=== PATIENT | female | born 1955 | race Caucasian/White ===

== ENCOUNTER 2016-11-13 08:57 | Day surgery (SDC) | payer BC ==
[~2016-11-13 08:57] MED LIST: Lactated Ringers 1,000 ML IV SCH; Sodium Chloride 0.9% 10 ML Syringe FLUSH PRN
--- NOTE | 2016-11-13 09:41 | PCM.HPR ---
H & P Addendum review - H & P Addendum Review Date of Original H & P: 10/27/16 Date Reviewed: 11/13/16 Time Reviewed: 09:40 Patient was examined: No Changes Please note any Changes: ok to proceed with colonoscopy
[2016-11-13] MEDS ORDERED: fentaNYL 100 MCG/2 ML SDV ONE ×2 (09:50→09:55)
[2016-11-13] MEDS ORDERED: Midazolam 1 MG/ML 2 ML SDV ONE ×2 (09:51→09:55)
[2016-11-13] MEDS ORDERED: Propofol 200 MG/20 ML SDV ONE (09:51)
--- NOTE | 2016-11-13 10:15 | PCM.OPNOTE ---
- General Post-Op/Procedure Note Date of Surgery/Procedure: 11/13/16 Operative Procedure(s): Colonoscopy Findings: Normal Pre Op Diagnosis: FH Colon Ca Post-Op Diagnosis: Same Anesthesia Technique: MAC Primary Surgeon: Mal Arellano Anesthesia Provider: Margarita Powers Complications: None Condition: Good
[2016-11-13 10:54] VITALS: BP 97/71
--- NOTE | 2016-11-13 12:01 | OR ---
Date of Procedure: 11/13/2016 PREOPERATIVE DIAGNOSIS: Family history of colon cancer. POSTOPERATIVE DIAGNOSIS: Normal colonoscopy. PROCEDURE: Colonoscopy. ANESTHESIA: IV sedation. PROCEDURE: The patient was brought to the procedure room, where she was placed on her left side and IV sedation administered. Digital rectal exam was performed which was normal. Colonoscope was inserted and advanced to the level of the cecum without difficulty. Cecal position was confirmed by identifying the appendiceal lumen and ileocecal valve. Prep was good and surfaces were well visualized. Upon withdrawing the scope, the ascending, transverse, and descending colon were normal in appearance. Sigmoid colon and rectum were normal. Retroflexion was normal. Air was removed and the scope withdrawn. The patient tolerated the procedure well. Returned to recovery in stable condition. Recommend routine colon screening again in five years. GUS ALAS MD /[id number]
== END 2016-11-13 12:20 | disposition home or self-care (01) ==
LOC: LL.SDS 08:57
PROVIDERS: ATTEND Surgery
DX: Z12.11 Encounter for screening for malignant neoplasm of colon (principal); I10 Essential (primary) hypertension; E78.5 Hyperlipidemia, unspecified; E21.3 Hyperparathyroidism, unspecified; Z98.890 Other specified postprocedural states; Z79.899 Other long term (current) drug therapy; Z88.8 Allergy status to other drugs, medicaments and biological substances
CPT/HCPCS: 45378; J2250; J3010; J7120

== ENCOUNTER 2017-06-25 14:49 | Emergency (ER) | payer BC, OTHER ==
[2017-06-25] MEDS ORDERED: Bacitracin/Neomycin/Polymyxin B Oint 0.9 GM U/D Packet TOP ONE (14:54)
[2017-06-25] MEDS ORDERED: Diphtheria,Pertussis(Acell),Tetanus Vaccine 0.5 ML SDV IM ONE (14:54)
[2017-06-25 15:03] VITALS: BP 146/87
--- NOTE | 2017-06-25 15:12 | EDM.PDOC ---
ED HPI GENERAL MEDICAL PROBLEM - General Chief Complaint: ENT Problem Stated Complaint: hit in lip at work Time Seen by Provider: 06/25/17 14:50 Source of Information: Reports: Patient, Old Records ([facility] EMR. No paper hospital chart available.) History Limitations: Reports: No Limitations - History of Present Illness INITIAL COMMENTS - FREE TEXT/NARRATIVE: The patient was brought to the emergency room via transport vehicle from [facility] for evaluation of a laceration of her lower lip, which occurred at about 14:15 hours, after she was hit by a window link. She does not know when she last had her tetanus booster. No history of headaches, visual changes, nausea, change in mental status, loss of consciousness, dental pain, neurological deficits or other complaints or injuries. No recent history of abdominal pain, heartburn, nausea, diarrhea, melena, gross hematochezia, or any food intolerance, including fatty foods, etc.. The patient also denies any recent fever, cough, wheezing, dyspnea, etc.. Onset: Today, Sudden Onset Date: 06/25/17 Onset Time: 14:15 Duration: Constant Location: Reports: Face (Lower lip as above). Denies: Head, Neck, Chest, Abdomen, Upper Extremity, Left, Upper Extremity, Right, Radiates to Quality: Reports: Ache, Same as Previous Episode Severity: Mild Improves with: Reports: None Worsens with: Reports: None Context: Reports: Trauma (As above) Associated Symptoms: Denies: Confusion, Chest Pain, Cough, Diaphoresis, Fever/ Chills, Headaches, Malaise, Nausea/Vomiting, Seizure, Shortness of Breath, Syncope, Weakness Treatments [employer]: Reports: Cold Therapy (Ice packs applied at work) Lower Lip Pain Score (Numeric/FACES): 1 - Related Data Allergies Allergy/AdvReac Type Severity Reaction Status Date / Time aspirin Allergy Ringing in Verified 06/25/17 14:50 the Ears succinylcholine Allergy Other Verified 06/25/17 14:50 Home Meds: Home Meds Calcium Carbonate/Vitamin D3 [Caltrate 600 Plus D3 Tablet] 1 tab PO DAILY [History] Lisinopril 10 mg PO DAILY 11/13/16 [History] Naproxen Sodium [Aleve] 2 tab PO Q12H PRN 06/25/17 [History] Past Medical History HEENT History: Reports: Hard of Hearing, Other (See Below). 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 Denies: Asthma Other Respiratory History: Recurrent bronchitis and pneumonia as a child; stable benign 4 mm right lower lobe pulmonary nodule by CT scan on 07/23/15 Gastrointestinal History: Reports: None Genitourinary History: Reports: Hydronephrosis, Renal Calculus, Other (See Below ) Other Genitourinary History: Recurrent bilateral urolithiasis with spontaneous passage with right sided nephrolithiasis 10/04/14 with left-sided urolithiasis on 08/12/14; benign renal cysts Musculoskeletal History: Reports: Arthritis, Back Pain, Chronic, Osteoarthritis , Other (See Below) Other Musculoskeletal History: Lumbarization of S1 by MRI Neurological History: Reports: None Psychiatric History: Reports: None Endocrine/Metabolic History: Reports: Hyperparathyroidism, Other (See Below). Denies: Diabetes, Type I, Diabetes, Type II, Hypothyroidism, IDDM Other Endocrine/Metabolic History: hypercalcemia secondary to hyperparathyroidism with surgery as below with additional history of recurrent urolithiasis as above Hematologic History: Reports: None Oncologic (Cancer) History: Reports: None Dermatologic History: Reports: None - Past Surgical History GI Surgical History: Reports: Colonoscopy, Other (See Below) Other GI Surgeries/Procedures: Colonoscopy on 11/13/16 Endocrine Surgical History: Reports: Parathyroidectomy, Other (See Below) Other Endocrine Surgeries/Procedures: Excision of one parathyroid gland in January 2016 secondary to hyperparathyroidism Musculoskeletal Surgical History: Reports: Other (See Below) - Past Imaging History Past Imaging History: Reports: CAT Scan (CT of the abdomen and pelvis with IV contrast on 10/04/14; CT of the chest on 07/23/15), Mammogram (Last mammogram on 10/27/16), MRI (MRI of the lumbar spine on 11/30/14 and 12/20/13) Social & Family History - Family History Oncologic: Reports: Colon, Metastatic, Other (See Below) Other Oncologic Family History: Mother with fatal metastatic colon cancer at age 89 - Tobacco Use Smoking Status *Q: Former Smoker Tobacco Use Within Last Twelve Months: Cigarettes Years of Tobacco use: 39 Packs/Tins Daily: 0.1 (Stop smoking at age 56) Used Tobacco, but Quit: Yes Month Tobacco Last Used: Intermittent tobacco use since age 17 as a teenager, then again in her 40s Smoking Cessation Information Provided To Patient: No Second Hand Smoke Exposure: No Second Hand Smoke Education Provided: No - Caffeine Use Caffeine Use: Reports: Soda - Recreational Drug Use Recreational Drug Use: No - Living Situation & Occupation Occupation: Employed ([employer], assembly) ED ROS GENERAL - Review of Systems Review Of Systems: See Below ED EXAM, SKIN/RASH Exam: See Below Exam Limited By: No Limitations General Appearance: Alert, WD/WN, No Apparent Distress Eye Exam: Bilateral Eye: EOMI, Normal Inspection (No nystagmus), PERRL Ears: Normal External Exam, Normal Canal, Normal TMs, Hearing Loss (Severe chronic bilateral hearing loss stable by history) Nose: Normal Inspection, Normal Mucosa, No Blood Throat/Mouth: Normal Teeth, Normal Gums, Normal Oropharynx, Normal Voice, No Airway Compromise, Other (1.5 cm in length laceration over the mid lower lip affecting the vermilion border). No: Dysphagia, Perioral Cyanosis Head: Atraumatic, Normocephalic. No: Facial Swelling, Facial Tenderness, Sinus Tenderness Neck: Normal Inspection, Supple, Non-Tender, Full Range of Motion. No: Lymphadenopathy (L), Lymphadenopathy (R), Thyromegaly Respiratory/Chest: No Respiratory Distress, Lungs Clear, Normal Breath Sounds, No Accessory Muscle Use, Chest Non-Tender. No: Pleural Rub, Retractions Cardiovascular: Normal Peripheral Pulses, Regular Rate, Rhythm, No Edema, No Gallop, No JVD, No Murmur, No Rub. No: Gallop/S3, Gallop/S4, Friction Rub Peripheral Pulses: 2+: Radial (L), Radial (R) GI/Abdominal: Normal Bowel Sounds, Soft, Non-Tender, No Organomegaly, No Distention, No Abnormal Bruit, No Mass. No: Guarding (Female) Exam: Deferred Rectal (Female) Exam: Deferred Back Exam: Normal Inspection, Full Range of Motion. No: Muscle Spasm Extremities: Normal Inspection, Normal Range of Motion, Non-Tender, No Pedal Edema, Normal Capillary Refill Neurological: Alert, Oriented, CN II-XII Intact, Normal Cognition, Normal Gait, No Motor/Sensory Deficits Psychiatric: Normal Affect, Normal Mood Skin: Wound/Incision (Lip laceration as above) Location, Skin: Face (Lip) Characteristics: Linear Associated features: Tenderness (Mild), Swelling (Minimal). No: Lymphangitis Lymphatic: No Adenopathy ED SKIN PROCEDURES - Laceration/Wound Repair Lower Other Lac/Wound length In cm: 1.5 Appearance: Superficial, Clean Distal NVT: Neuro & Vascular Intact, No Tendon Injury Anesthetic Type: Local Local Anesthesia - Lidocaine (Xylocaine): 1% Plain Local Anesthetic Volume: 4cc Skin Prep: Providone-Iodine (Betadine) Saline Irrigation (cc's): 0 Exploration/Debridement/Repair: Wound Explored, In a Bloodless Field, Explored to Base, No Foreign Material Found Suture Size: 4-0 # of Sutures: 4 Suture Type: Interrupted, Simple, Other (Vicryl) Drain Placement: No Sterile Dressing Applied: Nurse Tetanus Status Addressed: Yes Complications: No Course - Vital Signs Last Recorded V/S: Last Vital Signs Temp 37.1 C 06/25/17 14:50 Pulse 75 06/25/17 14:50 Resp 16 06/25/17 14:50 BP 146/87 H 06/25/17 14:50 Pulse Ox 99 06/25/17 14:50 Vital Signs - 24 hr 06/25/17 14:50 Temperature [ 37.1 C Temporal] Pulse, 75 Peripheral [ Pulse Oximetry] Respiratory 16 Rate Blood Pressure 146/87 H [Right Upper Arm] O2 Sat by Pulse 99 Oximetry - Orders/Labs/Meds Orders: Active Orders 24 hr Category Date Time Status Vaccines to be Administered [RC] PER UNIT ROUTINE Care 06/25/17 14:54 Active Obtain Past Medical Record [OM.PC] Routine Oth 06/25/17 14:54 Active Labs: None Meds: Medications Discontinued Medications Generic Name Dose Route Start Last Admin Trade Name Freq PRN Reason Stop Dose Admin Diphtheria/Tetanus/Acell Pertussis 0.5 ml 06/25/17 14:54 06/25/17 15:12 Adacel IM 06/25/17 14:55 0.5 ml .ONCE ONE Administration Lidocaine HCl 5 ml 06/25/17 14:55 Xylocaine-Mpf 1% INJECT 06/25/17 14:56 ONETIME ONE Neomycin/Polymyxin/Bacitracin 1 each 06/25/17 14:54 06/25/17 15:16 Triple Antibiotic Oint TOP 06/25/17 14:55 1 each ONETIME ONE Administration - Radiology Interpretation Free Text/Narrative:: None Departure - Departure Time of Disposition: 15:40 Disposition: Home, Self-Care 01 Condition: Good Clinical Impression: Laceration, Hypertension, Osteoarthritis, Hearing loss, Otitis externa - Discharge Information Instructions: VIS, Diphtheria, Tetanus, and Pertussis (DTaP) - [facility] Referrals: Sandra Thomason PA [Primary Care Provider] - Forms: ED Department Discharge Additional Instructions: 1. Follow up with your regular provider in 7days as needed, if sutures remain in place and/or may have a nurse remove the sutures and #4 Total sutures placed. 2. Clean laceration site with antibacterial mouthwash with Neosporin application 2 times per day until laceration heals 3. Work excuse- See Form 4. Soft diet as discussed until laceration heals - Problem List & Annotations (1) Laceration SNOMED Code(s): 216456828 Code(s): RNA9570 - Status: Acute Priority: High Current Visit: Yes Onset Date: 06/25/17 Annotation/Comment:: Excellent results with laceration repair as above. DTaP given. Wound care discussed. [employer] work excuse and Workmen's Compensation forms were completed with the patient wishing to return to work today (2) Hearing loss SNOMED Code(s): 17420708 Code(s): H91.90 - UNSPECIFIED HEARING LOSS, UNSPECIFIED EAR Status: Chronic Priority: Medium Current Visit: Yes Annotation/Comment:: Bilateral hearing loss since childhood secondary to recurrent use of tetracycline for recurrent childhood bronchitis and pneumonia as above. No current therapy. Hearing aids are advisable Qualifiers: Hearing loss type: unspecified Laterality: bilateral Qualified Code(s): H91.93 - Unspecified hearing loss, bilateral (3) Hypertension SNOMED Code(s): 28257572 Code(s): I10 - ESSENTIAL (PRIMARY) HYPERTENSION Status: Chronic Priority : Medium Current Visit: Yes Annotation/Comment:: Somewhat elevated in the emergency room. Continue to observe closely by her regular provider Qualifiers: Hypertension type: essential hypertension Qualified Code(s): I10 - Essential (primary) hypertension (4) Osteoarthritis SNOMED Code(s): 289562093 Code(s): M19.90 - UNSPECIFIED OSTEOARTHRITIS, UNSPECIFIED SITE Status: Chronic Priority: Medium Current Visit: Yes Annotation/Comment:: Stable by history Qualifiers: Osteoarthritis location: multiple joints Osteoarthritis type: primary Qualified Code(s): M15.0 - Primary generalized (osteo)arthritis - Problem List Review Problem List Initiated/Reviewed/Updated: Yes - My Orders Last 24 Hours: My Active Orders 06/25/17 14:54 Vaccines to be Administered [RC] PER UNIT ROUTINE Obtain Past Medical Record [OM.PC] Routine - Assessment/Plan Last 24 Hours: My Active Orders 06/25/17 14:54 Vaccines to be Administered [RC] PER UNIT ROUTINE Obtain Past Medical Record [OM.PC] Routine Assessment:: As above Plan: As above. Extensive precautions were given to the patient, who is in agreement with the treatment plan. See Patient Instructions for further treatment and plan.
== END 2017-06-25 15:40 | disposition home or self-care (01) ==
LOC: LL.ED 14:49
DX: S01.511A Laceration without foreign body of lip, initial encounter (principal); H91.93 Unspecified hearing loss, bilateral; H60.90 Unspecified otitis externa, unspecified ear; M19.90 Unspecified osteoarthritis, unspecified site; I10 Essential (primary) hypertension; Z23 Encounter for immunization; Z88.6 Allergy status to analgesic agent; Z88.8 Allergy status to other drugs, medicaments and biological substances; Z79.899 Other long term (current) drug therapy; W22.8XXA Striking against or struck by other objects, initial encounter
CPT/HCPCS: 12011; 90471; 90715; 99282

== ENCOUNTER 2022-04-10 10:16 | Day surgery (SDC) | payer BC ==
[~2022-04-10 10:16] MED LIST changes: +Midazolam 1 MG/ML 2 ML SDV ONE; +Propofol 200 MG/20 ML SDV ONE
[2022-04-10] MEDS ORDERED: Propofol 200 MG/20 ML SDV ONE (10:57)
[2022-04-10 17:29] VITALS: PULSE 64
[2022-04-10 17:30] VITALS: BP 115/75
== END 2022-04-10 12:00 | disposition home or self-care (01) ==
LOC: LL.SDS 10:16
PROVIDERS: ATTEND Surgery
DX: Z12.11 Encounter for screening for malignant neoplasm of colon (principal); I10 Essential (primary) hypertension; M85.80 Other specified disorders of bone density and structure, unspecified site; Z80.0 Family history of malignant neoplasm of digestive organs; Z79.899 Other long term (current) drug therapy; Z88.8 Allergy status to other drugs, medicaments and biological substances; Z98.890 Other specified postprocedural states
CPT/HCPCS: 00812; 45378; J2250; J2704; J7120

== ENCOUNTER 2024-01-09 10:47 | Emergency (ER) | payer MEDICARE ==
[2024-01-09 10:53] VITALS: PULSE 66
[2024-01-09 11:38] LABS: BASOPHILS ABSOLUTE AUTO 0.03 K/uL (0.00-0.20); BASOPHILS PERCENT AUTO 0.4 % (0.0-2.0); EOSINOPHILS ABSOLUTE AUTO 0.26 K/uL (0.00-0.50); EOSINOPHILS PERCENT AUTO 3.9 % (0.0-5.0); HEMATOCRIT 42.3 % (34.0-46.0); HEMOGLOBIN 13.6 g/dL (11.7-15.5); LYMPHOCYTES ABSOLUTE AUTO 1.66 K/uL (0.50-3.50); LYMPHOCYTES PERCENT AUTO 24.9 % (10.0-50.0); MEAN CORPUSCULAR HEMOGLOBIN 29.6 pg (28.2-33.3); MEAN CORPUSCULAR HGB CONC 32.2 g/dL (31.7-36.0); MEAN CORPUSCULAR VOLUME 92.2 fL (84.0-98.0); MONOCYTES ABSOLUTE AUTO 0.39 K/uL (0.00-1.00); MONOCYTES PERCENT AUTO 5.8 % (2.0-14.0); NEUTROPHILS ABSOLUTE AUTO 4.34 K/uL (1.40-7.00); PLATELET COUNT,PLT 187 K/uL (150-350); RED BLOOD CELL COUNT 4.59 M/uL (3.77-5.09); RED CELL DISTRIBUTION WIDTH 13.6 % (11.2-14.1); WHITE BLOOD CELL COUNT,WBC 6.7 K/uL (4.0-10.2)
[2024-01-09] MEDS: Mupirocin Oint 22 GM Tube TOP ONE (11:49)
[2024-01-09] MEDS: predniSONE 20 MG Tab PO ONE (11:49)
[2024-01-09 11:56] VITALS: BP 132/96
[2024-01-09 12:05] LABS: ALBUMIN 4.1 g/dL (3.4-5.0); ANION GAP 7.9 meq/L (7-15); BILIRUBIN TOTAL 0.8 mg/dL (0.2-1.0); CALCIUM 8.8 mg/dL (8.5-10.1); CARBON DIOXIDE,CO2 28.1 mmol/L (21.0-32.0); CREATININE 0.8 mg/dL (0.51-1.17); EST CRCL DRUG DOSING (CG) 57.22 mL/min; POTASSIUM,K 3.9 mmol/L (3.5-5.1); PROTEIN TOTAL,TP 7.1 g/dL (6.4-8.2)
== END 2024-01-09 12:06 | disposition home or self-care (01) ==
LOC: LL.ED 10:47
DX: T81.41XA Infection following a procedure, superficial incisional surgical site, initial encounter (principal); L30.9 Dermatitis, unspecified; I10 Essential (primary) hypertension; Z87.891 Personal history of nicotine dependence; Z79.899 Other long term (current) drug therapy; Z88.6 Allergy status to analgesic agent; Z88.8 Allergy status to other drugs, medicaments and biological substances
CPT/HCPCS: 36415; 80053; 83605; 85025; 87070; 87205; 99283; A9270-GY; J7512